=== PATIENT | male | born 1995 | race Caucasian/White ===

== ENCOUNTER 2018-12-31 21:43 | Emergency (ER) | payer BC ==
[~2018-12-31] VITALS: Ht 175.3 cm; Wt 61.2 kg
[~2018-12-31 21:43] MED LIST: IBUPROFEN 800800 M1 PO
[2018-12-31] MEDS ORDERED: CELEXA20 MG PO (22:08)
[2018-12-31] MEDS ORDERED: BUSPIRONE HCL10 MG PO (22:09)
[2018-12-31] MEDS ORDERED: NABUMETONE 750750 M1 PO (23:36)
[2018-12-31] MEDS ORDERED: KEFLEX500 M1 PO (23:36)
[2018-12-31] MEDS ORDERED: BACTRIM DS TAB1 EACH PO (23:36)
[2018-12-31 23:47] VITALS: BP 111/66
== END 2018-12-31 23:47 | disposition home or self-care (01) ==
LOC: M.ERS 21:43
DX: S90.562A Insect bite (nonvenomous), left ankle, initial encounter (principal); L08.9 Local infection of the skin and subcutaneous tissue, unspecified; F17.210 Nicotine dependence, cigarettes, uncomplicated; F41.9 Anxiety disorder, unspecified; F32.9 Major depressive disorder, single episode, unspecified; Z90.49 Acquired absence of other specified parts of digestive tract; W57.XXXA Bitten or stung by nonvenomous insect and other nonvenomous arthropods, initial encounter; Y93.89 Activity, other specified; Y92.89 Other specified places as the place of occurrence of the external cause; Y99.8 Other external cause status